=== PATIENT | male | born 1950 | race Caucasian/White ===

== ENCOUNTER 2021-02-18 04:24 | Day surgery (SDC) | payer OTHER ==
[2021-02-17 08:27] VITALS: BMI 32.1
[2021-02-18 09:56] VITALS: TEMP 97.2
[2021-02-18 12:42] VITALS: BP 128/87; PULSE 69
== END 2021-02-18 11:20 | disposition home or self-care (01) ==
LOC: JASU-ENDO 04:24
PROVIDERS: ATTEND Internal Medicine Gastroenterology
PROC: 0DBL8ZX Excision of Transverse Colon, Via Natural or Artificial Opening Endoscopic, Diagnostic (ICD-10-PCS; 2021-02-18)
PROC: 0DBG8ZX Excision of Left Large Intestine, Via Natural or Artificial Opening Endoscopic, Diagnostic (ICD-10-PCS; principal; 2021-02-18 09:30)
DX: Z12.11 Encounter for screening for malignant neoplasm of colon (principal); D12.3 Benign neoplasm of transverse colon
CPT/HCPCS: 88305-TC